=== PATIENT | female | born 1950 | race Caucasian/White ===

== ENCOUNTER → 2021-05-27 | Outpatient (CLI) | payer OTHER ==
[~2021-05-27] MED LIST: BACTRIM DS TAB1 EACH PO; FLEXERIL PO; GLUCOPHAGE500 MG PO; LISINOPRIL-HCT1 EACH PO; METFORMIN PO; NAPROSYN250 MG PO; NORCO 5-325 TA1 EACH PO; OMEPRAZOLE5 GM
== END ==
LOC: M.CT 10:31
PROVIDERS: ATTEND Nurse Practitioner Family
DX: K44.9 Diaphragmatic hernia without obstruction or gangrene (principal); K76.0 Fatty (change of) liver, not elsewhere classified; K57.30 Diverticulosis of large intestine without perforation or abscess without bleeding; M16.0 Bilateral primary osteoarthritis of hip; M47.815 Spondylosis without myelopathy or radiculopathy, thoracolumbar region; Z90.49 Acquired absence of other specified parts of digestive tract

== ENCOUNTER → 2021-05-27 | Outpatient (CLI) | payer OTHER | LOC: M.CT 10:37 | PROVIDERS: ATTEND Nurse Practitioner Family | DX: Z13.6 Encounter for screening for cardiovascular disorders (principal) ==

== ENCOUNTER → 2021-06-08 | Outpatient (CLI) | payer OTHER | LOC: M.ULTRA 08:51 | PROVIDERS: ATTEND Nurse Practitioner Family | DX: K76.0 Fatty (change of) liver, not elsewhere classified (principal); R16.0 Hepatomegaly, not elsewhere classified; Z90.49 Acquired absence of other specified parts of digestive tract ==